=== PATIENT | female | born 1995 | race Caucasian/White ===

== ENCOUNTER 2017-03-09 23:30 | Emergency (ER) | payer OTHER ==
[2017-03-09 23:42] VITALS: TEMP 98.8
--- NOTE | 2017-03-10 00:03 | EDPHY ---
H & P Smoking Status: Never smoked Time Seen by Provider: 03/09/17 23:51 HPI/ROS: CHIEF COMPLAINT: Discharge from wound HISTORY OF PRESENT ILLNESS: 21-year-old female had a left scapular lipoma removed by Dr. Samy Strickland on February 28, 2017, complaining of discharge and foul smell from the wound since this evening. No fever no chills no nausea no vomiting. PHYSICAL EXAM (Prior to examination, patient consented to physical exam, hands were washed and my usual and customary physical exam procedures followed) 1) GENERAL: Well-developed, well-nourished, alert and oriented. Appears to be in no acute distress. 2) HEAD: Normocephalic 3) HEENT: sclera anicteric 4) LUNGS: Breathing comfortably. 5) SKIN: Vertically-oriented left scapular incision. Most caudal aspect of wound has a white discharge and mild wound dehiscence. 6) MUSCULOSKELETAL: No crepitus (Daren,D Carmela) Constitutional: Initial Vital Signs Temperature (C) 37.1 C 03/09/17 23:39 Heart Rate 120 H 03/09/17 23:39 Respiratory Rate 18 03/09/17 23:39 Blood Pressure 128/95 H 03/09/17 23:39 O2 Sat (%) 97 03/09/17 23:39 O2 Delivery Mode Room Air Allergies/Adverse Reactions: latex Allergy (Verified 03/09/17 23:41) Home Medications: Medication Instructions Recorded LaMICtal 03/09/17 traZODone 03/09/17 Cephalexin [Keflex] 500 mg PO TID 10 Days cap 03/10/17 MDM/Departure - MDM Medications Given: Discontinued Medications Cephalexin (Keflex 500 Mg Prepack#4) 1 btl TAKEHOME EDNOW ONE PRN Reason: Protocol Stop: 03/10/17 00:10 Last Admin: 03/10/17 00:26 Dose: 1 btl ED Course/Re-evaluation: Patient has evidence of wound infection and a small area of wound dehiscence in the most caudal aspect of wound. Wound has been cultured. She is started on monotherapy with Keflex as she has no history of chronic skin infections or cutaneous MRSA. Today is Sunday night. She will need follow-up with Dr. Samy Strickland on Sunday for further evaluation. Wound has been dressed. She feels comfortable being discharged. Care of patient under supervision of secondary supervising physician Dr soto . (Daren,Connor Casey) PHYSICIAN DOCUMENTATION: The patient was evaluated and managed by the Physician Analysis Mgr. My co- signature indicates that I have reviewed this chart and I agree with the findings and plan of care as documented. I am the secondary supervising physician. (Candace Soto) - Depart Disposition: Home, Routine, Self-Care Clinical Impression: Wound infection after surgery Qualifiers: Encounter type: initial encounter Qualified Code(s): T81.4XXA - Infection following a procedure, initial encounter Condition: Good Instructions: Cephalexin (By mouth), Wound Infection (DC) Prescriptions: Cephalexin [Keflex] 500 mg PO TID 10 Days cap Referrals: Samy Strickland MD [Medical Doctor] - 03/12/17
[2017-03-10] MEDS ORDERED: CEPHALEXIN 500MG PREPACK#4 BTL TAKEHOME ONE (00:09)
[2017-03-10 00:42] VITALS: BP 122/74; PULSE 101; RESP 16; O2SAT 96
== END 2017-03-10 00:42 | disposition home or self-care (01) ==
DX: T81.4XXA Infection following a procedure, initial encounter (principal); Z91.040 Latex allergy status; Y82.8 Other medical devices associated with adverse incidents